=== PATIENT | male | born 1955 | race Caucasian/White ===

== ENCOUNTER 2020-08-25 08:36 | Emergency (ER) | payer OTHER, SELFPAY ==
[2020-08-25 09:03] VITALS: BP 119/71; PULSE 68; RESP 17; TEMP 36.9; O2SAT 97; BMI 23.9
--- NOTE | 2020-08-25 09:36 | XR_ITS ---
EXAMINATION: XR KNEE, RIGHT CLINICAL INFORMATION: Fall with knee pain COMPARISON: None TECHNIQUE: Four views of the right knee. FINDINGS: There is a large right knee effusion. There is degenerative spurring seen involving medial and lateral joint space compartments as well as the patellofemoral joint. There is question of a bipartite patella versus possible fracture however without soft tissue swelling overlying the patella fracture is unlikely. There is also a lucent region which appears be chronic within the patella. There appears to be slight irregularity with depression of the lateral tibial plateau and I'm suspicious of a mild compression fracture. XR/XR knee RT 4V IMPRESSION: Question mild compression fracture lateral tibial plateau. Tricompartment degenerative change. Large right knee effusion. Patellar irregularity as described.
--- NOTE | 2020-08-25 09:38 | ED.LOWEXIN ---
HPI - Extremity Injury (Lower) General Chief Complaint: Extremity Injury, Lower Stated Complaint: fell rt knee pain,back Time Seen by Provider: 08/25/20 08:55 Source: patient Mode of arrival: ambulatory History of Present Illness HPI Narrative: 65-year-old male presenting to the ED finding of right knee and low back pain s/p mechanical fall down 3 stairs 2 days ago. Patient reports missed a step and fell forward landing on right knee, denies head trauma or LOC. denies direct back trauma, numbness/tingling, weakness, incontinence or retention MD complaint: knee injury Related Data Previous Rx's Medication Instructions Recorded acetaminophen [Tylenol Extra 500 mg PO Q6H PRN #20 tab 08/25/20 Strength] cyclobenzaprine 5 mg PO Q8H PRN 5 Days #14 tab 08/25/20 hydrocodone-acetaminophen [[place]] 1 tab PO Q6H PRN 3 Days #9 tab 08/25/20 lidocaine [Lidoderm] 1 patch TOPICAL DAILY PRN #30 ea 08/25/20 MDD remove after 12 hours naproxen 500 mg PO BID PRN 10 Days #20 tab 08/25/20 Allergies Allergy/AdvReac Type Severity Reaction Status Date / Time No Known Allergies Allergy Verified 08/25/20 09:05 Review of Systems Review of Systems: Constitutional: No Weight loss, No Fever, No Chills Genitourinary: No Urinary Frequency, No Urinary Incontinence, No Flank Pain Musculoskeletal: +joint pain, No Myalgias, + Joint Swelling, +back pain Skin: No Skin Lesions, No rash Neuro: No Weakness, No Numbness, No Paresthesias PMFSH Past Medical History Attestation statement: The following information was validated with the patient. Medical History (Updated 08/25/20 @ 15:30 by JOSE RAMON Davison) No known health problems Social History Social History Advance Directives: No Advance Directives Information Provided: No Physical Exam Vital Signs: Vital Signs: Last Vital Signs Temp 98.4 F 08/25/20 09:03 Pulse 68 08/25/20 09:03 Resp 17 08/25/20 09:03 BP 119/71 08/25/20 09:03 Pulse Ox 97 08/25/20 09:03 Body Mass Index 23.9 Const: General: cooperative and healthy appearing Orientation/consciousness: patient oriented x3 Limitations: no limitations HENMT: Head: Yes normal to inspection Ears: hearing grossly normal bilaterally General nose exam: Normal external nose present Face and sinus: Yes normal facial exam Eyes: General: appearance normal, both eyes and all related structures EOM: EOMs intact bilaterally Neck: Other: No midline cervical spinous tenderness Neck: Yes normal visual inspection Resp: Effort & Inspection: normal respiratory effort Back/Spine/Pelvis: Other: No midline thoracic/lumbar spinous tenderness. + left lower lumbar MSK TTP Skin: Rashes: no rashes Wounds: no wounds Neuro: Other: No saddle anesthesia. Ambulating with steady gait. General: patient oriented x3 Gait exam (Neuro): Normal gait present Motor exam (neuro): 5/5 motor strength present throughout Extrem: Other: Right knee with mild swelling and +ttp greater the medial aspect. FROM and NV intact General: Yes normal to inspection Course Course Course Narrative: -questionable mild compression fracture lateral tibial plateau. Large joint effusion, and patellar irregularity questioning possible fracture >> [facility]-pranay orthopedic [facility] CT -Will obtain CT in the ED -Patient placed in knee immobilizer and with crutches to be nonweightbearing until follow up with Orthopedics Have paged [facility] multiple times to read CT -1525--CT without fracture or dislocation. Try compartment arthritis. Large complex joint effusion with high attenuation seen medially questionable for blood products >> patient still placed in knee immobilizer for comfort > imaging results discussed with patient including worrisome signs and symptoms and strict return precautions and close follow-up with Orthopedics. He verbalized understanding MDM - Extremity Injury (Lower) MDM Narrative Medical decision making narrative: No midline spinous tenderness throughout. Likely MSK back pain. Concern for ligamental/tendon or meniscal injury to knee. Lower concern for fracture/dislocation Plan: X-ray Discharge Plan Discharge Clinical Impression: Acute knee pain, Back pain, Effusion of knee Patient Disposition: Home, Self-Care Additional Instructions: You have a large knee effusion, but no visible fracture/break. CT scan is showing possible bloodly effusion/inflammation You need to wear knee immobilizer at home a forced stable as a colmenares/comfort YOU NEED TO FOLLOW-UP WITH ORTHOPEDIC DOCTOR Your back pain is likely musculoskeletal Flexeril is a muscle relaxer, take at night as it makes you drowsy, do not drive, drink alcohol, or operate machinery while taking it Naproxen as an anti-inflammatory / pain medication, take with food Lidoderm patches are numbing patches, apply to painful area [place] as an opiate pain medication, take only when pain is severe for the next 3 days, be aware [place] has Tylenol mixed in, do not exceed 4 g in 1 day In addition take Tylenol at home If symptoms persist or worsen, pain becomes unbearable, you developed urinary retention or incontinence, or weakness return to the ED Tiene un gran derrame de rodilla, nam ninguna fractura / rotura visible. La tomograf?a computarizada muestra un posible derrame / inflamaci?n sangu?laura Necesita usar inmovilizador de rodilla en casa un establo forzado rachana espinilla / comodidad NECESITA SEGUIMIENTO CON EL M?DICO ORTOP?DICO Es probable que larose dolor de espalda sea musculoesquel?ivy Flexeril es un relajante muscular, t?greer por la noche ya que le produce somnolencia, no conduzca, no joana alcohol ni utilice maquinaria mientras lo estrada. Naproxeno rachana medicamento antiinflamatorio / analg?sico, arin con alimentos Los parches de Lidoderm son parches adormecedores, se aplican al ?makenna dolorida Ossian rachana analg?sico opi?commercial energy rater, t?greer solo cuando el dolor sea intenso destinee los pr?ximos 3 d?as, tenga en cuenta que [place] tiene Tylenol mezclado, no exceda los 4 g en 1 d?a Adem?s, tome Tylenol en casa. Si los s?ntomas persisten o empeoran, el dolor se vuelve insoportable, desarroll? retenci?n urinaria o incontinencia o debilidad, regrese al servicio de urgencias Prescriptions: New acetaminophen [Tylenol Extra Strength] 500 mg tablet 500 mg PO Q6H PRN (Reason: pain or fever) Qty: 20 RF: 0 lidocaine [Lidoderm] 5 % adhesive patch,medicated 1 patch topical DAILY MDD remove after 12 hours PRN (Reason: pain) Qty: 30 RF: 0 naproxen 500 mg tablet 500 mg PO BID PRN (Reason: pain) 10 Days Qty: 20 RF: 0 cyclobenzaprine 5 mg tablet 5 mg PO Q8H PRN (Reason: pain (scale score 7-10)) 5 Days Qty: 14 RF: 0 hydrocodone-acetaminophen [[place]] 5-325 mg tablet 1 tab PO Q6H PRN (Reason: pain) 3 Days Qty: 9 RF: 0 Referrals: Nitin Salter PA-C [Physician Hand I Blocker] - 1 week (as needed) Physician,None [Primary Care Provider] - 2 days (Your PCP) Print Language: Faroese
[2020-08-25] MEDS: Ibuprofen 800 MG TABLET PO (09:47)
--- NOTE | 2020-08-25 12:11 | CT_ITS ---
EXAMINATION: CT KNEE WITHOUT CONTRAST, RIGHT CLINICAL INFORMATION: Fall. Knee pain. Question bilateral tibial plateau fracture seen on x-ray COMPARISON: Previous x-ray from earlier the same day TECHNIQUE: Axial images through the right knee without contrast. Sagittal and coronal reconstructions on the technologist workstation were performed. This CT examination was performed using dose optimization techniques as appropriate, variously including the following: *Automated exposure control *Adjustment of mA and/or kV according to patient size (this includes techniques or standardized protocols for targeted exams where dose is matched to indication/reason for exam; i.e. extremities or head) *Use of iterative reconstruction technique DLP: 220 mGy-cm FINDINGS: Bone alignment is normal. No fracture or dislocation is seen. There is multiple multipartite patella. There is a large subchondral cyst in the lateral patella. This measures 1 x 1.5 x 1.5 cm. There is arthritis at the femoral tibial and patellofemoral joints with joint space narrowing and osteophyte formation. There is a large joint effusion. The joint effusion appears high attenuation medially questionable for blood product. CT/CT knee RT wo con IMPRESSION: No fracture or dislocation seen. 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 Large complex joint effusion with high attenuation seen medially questionable for blood products.
[2020-08-25] MEDS: Lidocaine 4 % Patch ADH..PATCH 1 PATCH TRANSDERMA (14:14)
[2020-08-25] MEDS: Acetaminophen 325 MG TABLET 650 MG PO (14:14)
[2020-08-25 15:29] VITALS: BP 145/72; PULSE 55; RESP 16; TEMP 36.4; O2SAT 99
== END 2020-08-25 15:51 | disposition home or self-care (01) ==
PROVIDERS: Emergency Provider Emergency Medicine
DX: M25.561 Pain in right knee (principal); M54.5 Low back pain; Z79.899 Other long term (current) drug therapy
CPT/HCPCS: 73564; 73700; 99283; 99284

== ENCOUNTER 2020-09-02 12:51 | Outpatient (REF) | payer OTHER, SELFPAY ==
--- NOTE | 2020-09-02 13:56 | XR_ITS ---
EXAMINATION: XR KNEE, RIGHT CLINICAL INFORMATION: Right knee pain COMPARISON: CT right knee noncontrast 08/25/2020, radiographs right knee 08/25/2020 TECHNIQUE: Axial view of the patellar is performed. FINDINGS: As noted on prior imaging, there is bipartite patella with lateral corticated fragment measuring approximately 0.9 x 2.4 cm. There is a lobulated non-mineralized nonexpansile cyst within the patella, lateral to midline, measuring approximately 2.0 x 1.6 cm. Some mild spurring is present patellofemoral joint medial side. There is no erosive change or visible chondrocalcinosis. XR/XR knee RT 2V IMPRESSION: Bipartite patella with intra-patellar cyst and spurring medial patellofemoral joint. Findings similar to recent CT 08/25/2020.
== END 2020-09-02 12:52 | disposition home or self-care (01) ==
LOC: HO.HOSX 12:51
PROVIDERS: Visit Provider Physician Assistant
DX: Q74.1 Congenital malformation of knee (principal)
CPT/HCPCS: 20610; 73560; 99202; J1040

== ENCOUNTER 2020-09-05 12:57 | Emergency (ER) | payer OTHER, SELFPAY ==
[2020-09-05 13:15] VITALS: BP 113/69; PULSE 105; RESP 17; TEMP 36.9; O2SAT 98; BMI 23.9
--- NOTE | 2020-09-05 13:41 | ED_ITS ---
HPI - General Adult General Chief complaint: General Medical Stated complaint: bruise & swelling rt arm no injury Time Seen by Provider: 09/05/20 13:41 History of Present Illness HPI narrative: Patient complains of of right bicep with bruising ,does not recall any trauma, he has no injury he has pain when he flexes and moves in the biceps area he has no fever no chills no wounds no other pain in any other joints or muscles, pain is mild and the bruising has been present for 1 day Related Data Previous Rx's Medication Instructions Recorded acetaminophen [Tylenol Extra 500 mg PO Q6H PRN #20 tab 08/25/20 Strength] cyclobenzaprine 5 mg PO Q8H PRN 5 Days #14 tab 08/25/20 hydrocodone-acetaminophen [[place]] 1 tab PO Q6H PRN 3 Days #9 tab 08/25/20 lidocaine [Lidoderm] 1 patch TOPICAL DAILY PRN #30 ea 08/25/20 MDD remove after 12 hours naproxen 500 mg PO BID PRN 10 Days #20 tab 08/25/20 hydrocodone-acetaminophen [[place]] 1 tab PO Q6H PRN #10 tab 09/05/20 ibuprofen 600 mg PO Q6H PRN #20 tab 09/05/20 Allergies Allergy/AdvReac Type Severity Reaction Status Date / Time No Known Allergies Allergy Verified 09/05/20 13:18 Review of Systems Review of Systems: No numbness no weakness no paresthesias no chest pain no shortness of breath no skin rash Yes all other systems are reviewed and are negative PMFSH Past Medical History Source: nursing notes reviewed Medical History No known health problems Social History Social History Cigarettes Per Day: 5 Current occupational status: retired Physical Exam Vital Signs: Vital Signs: Last Vital Signs Temp 98.5 F 09/05/20 13:15 Pulse 105 H 09/05/20 13:15 Resp 17 09/05/20 13:15 BP 113/69 09/05/20 13:15 Pulse Ox 98 09/05/20 13:15 Body Mass Index 23.9 A&O x3 comfortable cooperative no acute distress Normocephalic atraumatic neck is supple Respiratory no distress Exam of the biceps on the right side shows bruising over the biceps area with tenderness at the proximal insertion of the biceps and bunching of the muscle consistent with a biceps tendon rupture The rest of the arm is neurovascular intact with normal skin color normal pulses normal sensation and normal motor Skin no rashes Neuro no focal deficit Course Course Course Narrative: Patient's exam is consistent with a biceps tendon rupture and he is referred to Orthopedics Discharge Plan Discharge Clinical Impression: Nontraumatic rupture of right bicep tendon Patient Disposition: Home, Self-Care Additional Instructions: It appears you tore the biceps tendon, in some cases this can happen without an injury The bruising and the bunching of the muscle looked like a ruptured biceps tendon Follow with orthopedist Return any time any worse condition or concerns Prescriptions: New hydrocodone-acetaminophen [[place]] 5-325 mg tablet 1 tab PO Q6H PRN (Reason: pain) Qty: 10 RF: 0 ibuprofen 600 mg tablet 600 mg PO Q6H PRN (Reason: pain) Qty: 20 RF: 0 No Action acetaminophen [Tylenol Extra Strength] 500 mg tablet 500 mg PO Q6H PRN (Reason: pain or fever) Qty: 20 RF: 0 lidocaine [Lidoderm] 5 % adhesive patch,medicated 1 patch topical DAILY MDD remove after 12 hours PRN (Reason: pain) Qty: 30 RF: 0 naproxen 500 mg tablet 500 mg PO BID PRN (Reason: pain) 10 Days Qty: 20 RF: 0 cyclobenzaprine 5 mg tablet 5 mg PO Q8H PRN (Reason: pain (scale score 7-10)) 5 Days Qty: 14 RF: 0 hydrocodone-acetaminophen [[place]] 5-325 mg tablet 1 tab PO Q6H PRN (Reason: pain) 3 Days Qty: 9 RF: 0 Referrals: Lex Ha MD [Physician] - 2 days (Ruptured right bicep tendon) Interventions: ED Discharge Assessment Last Done: 09/05/20 14:10 Discharge Date/Time: 09/05/20 14:10
== END 2020-09-05 14:10 | disposition home or self-care (01) ==
PROVIDERS: Emergency Provider Internal Medicine
DX: S46.211A Strain of muscle, fascia and tendon of other parts of biceps, right arm, initial encounter (principal); F17.210 Nicotine dependence, cigarettes, uncomplicated; Z71.6 Tobacco abuse counseling; X58.XXXA Exposure to other specified factors, initial encounter; Y93.9 Activity, unspecified; Y92.9 Unspecified place or not applicable; Y99.9 Unspecified external cause status; Z79.899 Other long term (current) drug therapy
CPT/HCPCS: 99283

== ENCOUNTER → 2020-09-08 10:49 | Outpatient (BNVA) | payer OTHER, SELFPAY | PROVIDERS: Visit Provider Physician Assistant | DX: S46.111A Strain of muscle, fascia and tendon of long head of biceps, right arm, initial encounter (principal) | CPT/HCPCS: 99212 ==

== ENCOUNTER 2020-09-09 08:52 | Outpatient (REF) | payer OTHER, SELFPAY | END 2020-09-09 08:53 | disposition home or self-care (01) | LOC: HO.LAB 08:52 | PROVIDERS: Visit Provider Internal Medicine | DX: Z20.828 Contact with and (suspected) exposure to other viral communicable diseases (principal) | CPT/HCPCS: C9803; U0003 ==

== ENCOUNTER 2020-11-03 11:05 | Outpatient (REF) | payer OTHER, SELFPAY | END 2020-11-03 11:06 | disposition home or self-care (01) | LOC: HO.LAB 11:05 | PROVIDERS: Visit Provider Internal Medicine | DX: Z20.822 Contact with and (suspected) exposure to COVID-19 (principal) | CPT/HCPCS: 36415; C9803; U0003 ==